=== PATIENT | female | born 1945 | race Caucasian/White ===

== ENCOUNTER 2018-06-13 18:54 | Inpatient (IN) | payer MEDICARE, MEDICAID ==
[2018-06-13 21:29] LABS: BASO # 0.1 K/uL (0.0-0.2); BASO % 0.9 % (0.0-2.0); EOS # 0.3 K/uL (0.0-0.7); EOS % 3.6 % (0.0-4.0); HEMOGLOBIN 12.1 g/dL (11.0-16.0); LYMPH # 2.3 K/uL (1.0-4.3); LYMPH % 24.2 % (20.0-40.0); MEAN CELL VOLUME 92.3 fL (81.0-99.0); MEAN CORPUSCULAR HEMOGLOBIN 31.4 pg (27.0-31.0); MEAN PLATELET VOLUME 9.8 fL (7.2-11.7); MONO % 10.3 % (0.0-10.0); NEUT # 5.8 K/uL (1.8-7.0); NRBC % 0.1 % (0.0-2.0); RBC 3.85 Mil/uL (3.80-5.20); RED CELL DISTRIBUTION WIDTH 14.7 % (11.5-14.5); WHITE BLOOD COUNT 9.6 K/uL (4.8-10.8)
--- NOTE | 2018-06-13 21:52 | C.PDOC ---
History Of Present Illness 73 year old female presents to the emergency department with complaints of swelling and pain to the left leg for the last few days. Patient reports experiencing a similar episode one month prior, for which she was treated with antibiotics. She denies trauma or shortness of breath. Time Seen by Provider: 06/13/18 21:51 Chief Complaint (Nursing): Lower Extremity Problem/Injury History Per: Patient History/Exam Limitations: no limitations Onset/Duration Of Symptoms: Days Current Symptoms Are (Timing): Still Present Severity: Moderate Pain Scale Rating Of: 4 Recent travel outside of the [place]: No Additional History Per: Family Past Medical History Reviewed: Historical Data, Nursing Documentation, Vital Signs Vital Signs: Last Vital Signs Temp 98.6 F 06/13/18 19:01 Pulse 84 06/13/18 21:11 Resp 15 06/13/18 21:11 BP 134/56 L 06/13/18 21:11 Pulse Ox 98 06/13/18 22:07 - Medical History PMH: Anxiety, Asthma, Diabetes, HTN, Hypothyroidism, Chronic Kidney Disease Surgical History: Cholecystectomy Family History: States: No Known Family Hx - Social History Hx Tobacco Use: No Hx Alcohol Use: No Hx Substance Use: No - Immunization History Hx Tetanus Toxoid Vaccination: No Hx Influenza Vaccination: Yes Hx Pneumococcal Vaccination: Yes Review Of Systems Constitutional: Negative for: Fever, Chills Cardiovascular: Negative for: Chest Pain Respiratory: Negative for: Shortness of Breath Gastrointestinal: Negative for: Abdominal Pain Genitourinary: Negative for: Dysuria Musculoskeletal: Positive for: Leg Pain (left leg swelling and pain). Negative for: Back Pain Skin: Positive for: Rash Neurological: Negative for: Weakness Psych: Negative for: Anxiety Physical Exam - Physical Exam Appears: Non-toxic, No Acute Distress Skin: Warm, Dry Head: Normacephalic Eye(s): bilateral: Normal Inspection Oral Mucosa: Moist Neck: Trachea Midline, Supple Chest: Symmetrical, No Tenderness Cardiovascular: Rhythm Regular, No Murmur Respiratory: No Rales, No Rhonchi, No Wheezing Gastrointestinal/Abdominal: Soft, No Tenderness, No Guarding, No Rebound, Other (morbidly obese) Back: Normal Inspection Extremity: Tenderness (left leg), Pedal Edema, Calf Tenderness (left leg), Capillary Refill, Swelling (left leg), Other (left leg erythema) Extremity: Left: Painful To Bear Weight, Bilateral: Atraumatic Pulses: Left Dorsalis Pedis: Normal, Right Dorsalis Pedis: Normal Neurological/Psych: Oriented x3 Gait: With Assistance ED Course And Treatment - Laboratory Results Result Diagrams: 06/13/18 21:23 06/13/18 21:23 O2 Sat by Pulse Oximetry: 98 (RA) Pulse Ox Interpretation: Normal Progress Note: Plan: Venous Blood Gas. CMP. CBC. PTT. Prothrombin Time. Lovenox 100mg SC. Blood Culture. Urinalysis Disposition Discussed With Dr.: Skyler Nichols Comment: accepted the pt on his service and took over the care at 10:37 PM Counseled Patient/Family Regarding: Studies Performed, Diagnosis - Disposition Disposition: HOSPITALIZED Disposition Time: 21:52 Condition: FAIR Forms: [facility] (Citizen Of [place]) - POA Present On Arrival: None - Clinical Impression Clinical Impression: Cellulitis, Leg pain, left, Renal insufficiency - Scribe Statement The provider has reviewed the documentation as recorded by the Scribe (Asim Noonan) Provider Attestation: All medical record entries made by the Scribe were at my direction and personally dictated by me. I have reviewed the chart and agree that the record accurately reflects my personal performance of the history, physical exam, medical decision making, and the department course for this patient. I have also personally directed, reviewed, and agree with the discharge instructions and disposition. Decision To Admit - Pt Status Changed To: Hospital Disposition Of: Inpatient - Admit Certification Admit to Inpatient:: After my assessment, the patient will require hospitalization for at least two midnights. This is because of the severity of symptoms shown, intensity of services needed, and/or the medical risk in this patient being treated as an outpatient. - InPatient: Physician Admission Certification: I certify that this patient requires 2 or more midnights of care for the following reason:: After my assessment, the patient will require hospitalization for at least two midnights. This is because of the severity of symptoms shown, intensity of services needed, and/or the medical risk in this patient being treated as an outpatient. - . Bed Request Type: Regular Admitting Physician: Skyler Nichols Patient Diagnosis: Cellulitis, Leg pain, left, Renal insufficiency
[2018-06-13 21:53] LABS: ALB/GLOB RATIO 1.2 (1.0-2.1); ALBUMIN 4.4 g/dL (3.5-5.0)
[2018-06-13] MEDS ORDERED: Enoxaparin 40 mg Syringe SC STA (21:59)
[2018-06-13 22:16] LABS: VENOUS BLOOD GAS BASE EXCESS 4.2 mmol/L (0.0-2.0); VENOUS BLOOD GAS PCO2 50 mmHg (40-60); VENOUS BLOOD GAS PO2 29 mm/Hg (30-55); VENOUS BLOOD PH 7.39 (7.32-7.43)
[2018-06-13] MEDS ORDERED: Enoxaparin 100 mg Syringe ONE (22:17)
[2018-06-13 22:22] LABS: SQUAMOUS EPITHIAL 4 /hpf (0-5); URINE BILIRUBIN NEGATIVE (NEGATIVE); URINE BLOOD NEGATIVE (NEGATIVE); URINE CLARITY Clear (Clear); URINE COLOR Straw (YELLOW); URINE GLUCOSE (UA) NORMAL (Normal); URINE LEUKOCYTE ESTERASE NEG Leu/uL (Negative); URINE PROTEIN NEGATIVE (NEGATIVE); URINE UROBILINOGEN NORMAL mg/dL (0.2-1.0)
[2018-06-13 22:25] LABS: INR 1.1; PROTHROMBIN TIME 12.3 SECONDS (9.7-12.2)
[2018-06-13] MEDS ORDERED: Piperacillin/Tazobact 3.375 gm 100 ML IVPB STA (22:40)
[2018-06-13] MEDS ORDERED: Vancomycin 1 GM 1 GM/250 ML BAG IVPB SCH (22:45)
[2018-06-13] MEDS ORDERED: Piperacillin/Tazobact 3.375 gm 100 ML IVPB ONE (22:59)
[2018-06-13] MEDS ORDERED: Enoxaparin 100 mg Syringe SC SCH (23:45)
--- NOTE | 2018-06-14 00:15 | CP.PCM.HP ---
<Ravinder Sosa - Last Filed: 06/14/18 00:17> History of Present Illness - History of Present Illness History of Present Illness: Pt is a 73yo female with a PMh of HTN, hypothyroidsm, Asthma, DM type 2, Gout, L lower ext phlebitis and recent treatment course of L Leg cellulitis presents to the ED with a one month history of L lower extremity pain. Pt says the pain went away for the two weeks or so but it came back on saturday. she describes the pain as non radiating, extremely tender and worse with movement. She has not taken anything to make it better. Pt says its been getting worse since saturday. she went to her PMD today who told her to come to the ER for treatment. Of note : Pt has had two episodes of phlebitis in the L calf each after giving to her two children. Pt has a very sedentary lifestyle and only ambulates short distances with a walker. ROS pos+ swelling in the calf, redness, bruising in the L calf, feels warm, difficulty walking neg- fevers, chills, sweating, n/v, SOB, pain with inspiration, chest pain, palpitations, change in vision, sick contacts, change in bowel moves or urine [facility] PMD: unknown PMH: HTn, gout, asthma, dm2, hypothyroid, phlebitis, cellulitis Psx: nicole carpal tunnel release, C section, cholecystectomy SocHx: former smoker, former ETOH, denies drug use, lives home, sedentary Family Hx: mom dm2 Allergies: denies Present on Admission - Present on Admission Any Indicators Present on Admission: No Review of Systems - Constitutional Constitutional: As Per HPI - EENT Eyes: As Per HPI Ears: As Per HPI Nose/Mouth/Throat: As Per HPI - Breasts Breasts: As Per HPI - Cardiovascular Cardiovascular: As Per HPI - Respiratory Respiratory: As Per HPI - Gastrointestinal Gastrointestinal: As Per HPI - Genitourinary Genitourinary: As Per HPI - Reproductive: Female Reproductive:Female: As Per HPI - Menstruation Menstruation: As Per HPI - Musculoskeletal Musculoskeletal: As Per HPI - Integumentary Integumentary: As Per HPI - Neurological Neurological: As Per HPI - Psychiatric Psychiatric: As Per HPI - Endocrine Endocrine: As Per HPI - Hematologic/Lymphatic Hematologic: As Per HPI Past Patient History - Infectious Disease Hx of Infectious Diseases: None - Past Medical History & Family History Past Medical History?: Yes - Past Social History Smoking Status: Former Smoker Alcohol: Occasional Home Situation {Lives}: With Family - CARDIAC Hx Hypertension: Yes - PULMONARY Hx Asthma: Yes - NEUROLOGICAL Hx Neurological Disorder: No - HEENT Hx HEENT Problems: No - RENAL Hx Chronic Kidney Disease: Yes - ENDOCRINE/METABOLIC Hx Hypothyroidism: Yes - HEMATOLOGICAL/ONCOLOGICAL Hx Blood Disorders: No - INTEGUMENTARY Hx Dermatological Problems: No - MUSCULOSKELETAL/RHEUMATOLOGICAL Hx Gout: Yes - GASTROINTESTINAL Hx Gastrointestinal Disorders: No - GENITOURINARY/GYNECOLOGICAL Hx Genitourinary Disorders: No - PSYCHIATRIC Hx Anxiety: Yes Hx Substance Use: No - SURGICAL HISTORY Hx Cholecystectomy: Yes - ANESTHESIA Hx Anesthesia: Yes Meds Allergies/Adverse Reactions: Allergies Allergy/AdvReac Type Severity Reaction Status Date / Time No Known Allergies Allergy Unverified 06/13/18 21:15 Physical Exam - Constitutional Appears: Well, Non-toxic, No Acute Distress - Head Exam Head Exam: ATRAUMATIC, NORMAL INSPECTION - Eye Exam Eye Exam: EOMI, Normal appearance - ENT Exam ENT Exam: Mucous Membranes Moist - Neck Exam Neck exam: Positive for: Normal Inspection - Respiratory Exam Respiratory Exam: Clear to Auscultation Bilateral, NORMAL BREATHING PATTERN - Cardiovascular Exam Cardiovascular Exam: RRR, +S1, +S2. absent: Systolic Murmur - GI/Abdominal Exam GI & Abdominal Exam: Soft. absent: Hypoactive Bowel Sounds, Tenderness - Extremities Exam Extremities exam: Positive for: calf tenderness (L calf), pedal pulses present Additional comments: bruising and erythema at medial posterior surface of Left calf. markedly greater diameter than right - Back Exam Back exam: NORMAL INSPECTION - Neurological Exam Neurological exam: Alert, CN II-XII Intact, Oriented x3 - Psychiatric Exam Psychiatric exam: Normal Affect, Normal Mood - Skin Skin Exam: Normal Color, Warm Results - Vital Signs Recent Vital Signs: Last Vital Signs Temp 98.6 F 06/13/18 19:01 Pulse 84 06/13/18 21:11 Resp 15 06/13/18 21:11 BP 134/56 L 06/13/18 21:11 Pulse Ox 98 06/13/18 22:39 - Labs Result Diagrams: 06/13/18 21:23 06/13/18 21:23 Labs: Laboratory Results - last 24 hr 06/13/18 06/13/18 06/13/18 21:23 21:23 22:02 WBC 9.6 RBC 3.85 Hgb 12.1 Hct 35.5 MCV 92.3 D MCH 31.4 H MCHC 34.0 RDW 14.7 H Plt Count 222 MPV 9.8 Neut % (Auto) 61.0 Lymph % (Auto) 24.2 Canadian % (Auto) 10.3 H Eos % (Auto) 3.6 Baso % (Auto) 0.9 Neut # (Auto) 5.8 Lymph # (Auto) 2.3 Canadian # (Auto) 1.0 H Eos # (Auto) 0.3 Baso # (Auto) 0.1 PT 12.3 H INR 1.1 APTT 35 H pO2 VBG pH VBG pCO2 VBG HCO3 VBG Total CO2 VBG O2 Sat (Calc) VBG Base Excess VBG Potassium Glucose Lactate Sodium 141 Potassium 5.4 H Chloride 101 Carbon Dioxide 29 Anion Gap 17 BUN 49 H Creatinine 2.5 H Est GFR ( Amer) 23 Est GFR (Non-Af Amer) 19 Random Glucose 84 Calcium 10.0 Total Bilirubin 0.9 AST 31 ALT 22 Alkaline Phosphatase 54 Total Protein 8.1 Albumin 4.4 Globulin 3.7 Albumin/Globulin Ratio 1.2 Venous Blood Potassium Urine Color Urine Clarity Urine pH Ur Specific Orchard Urine Protein Urine Glucose (UA) Urine Ketones Urine Blood Urine Nitrate Urine Bilirubin Urine Urobilinogen Ur Leukocyte Esterase Urine WBC (Auto) Ur Squamous Epith Cells 06/13/18 06/13/18 22:10 22:12 WBC RBC Hgb Hct MCV MCH MCHC RDW Plt Count MPV Neut % (Auto) Lymph % (Auto) Canadian % (Auto) Eos % (Auto) Baso % (Auto) Neut # (Auto) Lymph # (Auto) Canadian # (Auto) Eos # (Auto) Baso # (Auto) PT INR APTT pO2 29 L VBG pH 7.39 VBG pCO2 50 VBG HCO3 27.0 VBG Total CO2 31.8 H VBG O2 Sat (Calc) 59.7 VBG Base Excess 4.2 H VBG Potassium 4.2 Glucose 72 Lactate 0.9 Sodium 142.0 Potassium Chloride 107.0 Carbon Dioxide Anion Gap BUN Creatinine Est GFR ( Amer) Est GFR (Non-Af Amer) Random Glucose Calcium Total Bilirubin AST ALT Alkaline Phosphatase Total Protein Albumin Globulin Albumin/Globulin Ratio Venous Blood Potassium 4.2 Urine Color Straw Urine Clarity Clear Urine pH 5.0 Ur Specific [place]chard 1.010 Urine Protein Negative Urine Glucose (UA) Normal Urine Ketones Negative Urine Blood Negative Urine Nitrate Negative Urine Bilirubin Negative Urine Urobilinogen Normal Ur Leukocyte Esterase Neg Urine WBC (Auto) < 1 Ur Squamous Epith Cells 4 Assessment & Plan - Assessment and Plan (Free Text) Assessment: Calf pain/swelling -Lovenox 100mg sc -Venous doppler: f/u results -CBC, CMP, COAG f/u -Blood culture: f/u results DM type 2 -Accuchecks -hypoglycemic protocol Asthma: -monitor pulse ox hypothyroidsm -TSH, free t4 HTN -monitor BP <Skyler Nichols P - Last Filed: 06/14/18 07:04> Results - Vital Signs Recent Vital Signs: Last Vital Signs Temp 98.6 F 06/13/18 19:01 Pulse 60 06/14/18 06:51 Resp 13 06/14/18 06:51 BP 118/54 L 06/14/18 06:51 Pulse Ox 96 06/14/18 06:51 - Labs Result Diagrams: 06/13/18 21:23 06/13/18 21:23 Labs: Laboratory Results - last 24 hr 06/13/18 06/13/18 06/13/18 21:23 21:23 22:02 WBC 9.6 RBC 3.85 Hgb 12.1 Hct 35.5 MCV 92.3 D MCH 31.4 H MCHC 34.0 RDW 14.7 H Plt Count 222 MPV 9.8 Neut % (Auto) 61.0 Lymph % (Auto) 24.2 Canadian % (Auto) 10.3 H Eos % (Auto) 3.6 Baso % (Auto) 0.9 Neut # (Auto) 5.8 Lymph # (Auto) 2.3 Canadian # (Auto) 1.0 H Eos # (Auto) 0.3 Baso # (Auto) 0.1 PT 12.3 H INR 1.1 APTT 35 H pO2 VBG pH VBG pCO2 VBG HCO3 VBG Total CO2 VBG O2 Sat (Calc) VBG Base Excess VBG Potassium Glucose Lactate Sodium 141 Potassium 5.4 H Chloride 101 Carbon Dioxide 29 Anion Gap 17 BUN 49 H Creatinine 2.5 H Est GFR ( Amer) 23 Est GFR (Non-Af Amer) 19 Random Glucose 84 Calcium 10.0 Total Bilirubin 0.9 AST 31 ALT 22 Alkaline Phosphatase 54 Total Protein 8.1 Albumin 4.4 Globulin 3.7 Albumin/Globulin Ratio 1.2 Venous Blood Potassium Urine Color Urine Clarity Urine pH Ur Specific [place] Urine Protein Urine Glucose (UA) Urine Ketones Urine Blood Urine Nitrate Urine Bilirubin Urine Urobilinogen Ur Leukocyte Esterase Urine WBC (Auto) Ur Squamous Epith Cells 06/13/18 06/13/18 22:10 22:12 WBC RBC Hgb Hct MCV MCH MCHC RDW Plt Count MPV Neut % (Auto) Lymph % (Auto) Canadian % (Auto) Eos % (Auto) Baso % (Auto) Neut # (Auto) Lymph # (Auto) Canadian # (Auto) Eos # (Auto) Baso # (Auto) PT INR APTT pO2 29 L VBG pH 7.39 VBG pCO2 50 VBG HCO3 27.0 VBG Total CO2 31.8 H VBG O2 Sat (Calc) 59.7 VBG Base Excess 4.2 H VBG Potassium 4.2 Glucose 72 Lactate 0.9 Sodium 142.0 Potassium Chloride 107.0 Carbon Dioxide Anion Gap BUN Creatinine Est GFR ( Amer) Est GFR (Non-Af Amer) Random Glucose Calcium Total Bilirubin AST ALT Alkaline Phosphatase Total Protein Albumin Globulin Albumin/Globulin Ratio Venous Blood Potassium 4.2 Urine Color Straw Urine Clarity Clear Urine pH 5.0 Ur Specific [place] 1.010 Urine Protein Negative Urine Glucose (UA) Normal Urine Ketones Negative Urine Blood Negative Urine Nitrate Negative Urine Bilirubin Negative Urine Urobilinogen Normal Ur Leukocyte Esterase Neg Urine WBC (Auto) < 1 Ur Squamous Epith Cells 4 Attending/Attestation - Attestation I have personally seen and examined this patient.: Yes I have fully participated in the care of the patient.: Yes I have reviewed all pertinent clinical information: Yes Notes (Text): Assessment Left lower leg, calf swelling, tenderness, without fever, white count, dd of cellulitis vs DVT, with recent use of abx for 3 days agugmentin, and h/o similar episode to lesser extent a month ago, and h/o thrombophebitis post 29 yrs back in the same leg. H/o CRI creat 2.4 NIDDM H/o gout, neuropathy, glaucoma, gb surgery Plan Venous doppler to r/o dvt Empiric abx rocephin and doxycycline Therapeutic lovenox Home meds to resume See orders for detail
[2018-06-14] MEDS ORDERED: Vancomycin 1 gm/NS 200 ml 1 GM/200 ML BAG IVPB STA (00:33)
[2018-06-14] MEDS ORDERED: Brimonidine 0.2% Opth Sol (5ml) OU SCH (08:00)
[2018-06-14] MEDS ORDERED: Vancomycin 1 GM in Sodium Chloride 0.9% 200 ML IVPB SCH (10:00)
[2018-06-14] MEDS ORDERED: Enoxaparin 100 mg Syringe SC SCH (10:00)
[2018-06-14] MEDS: Pantoprazole 40 mg EC Tab PO SCH (11:19)
[2018-06-14 11:23] VITALS: RESP 20
[2018-06-14 17:32] LABS: CALCIUM 8.5 mg/dl (8.6-10.4)
--- NOTE | 2018-06-14 19:03 | CP.PCM.PN ---
Subjective - Date & Time of Evaluation Date of Evaluation: 06/14/18 Time of Evaluation: 19:01 - Subjective Subjective: PGY-1 Medicine Progress Note for Dr. Guevara's service Patient seen and examined at bedside. Patient reports pain on palpation on bilateral lower extremities left>right. Patient denies chest pain, sob, palpitations, n/v, constipation, diarrhea, weakness, headaches, dizziness. Objective - Vital Signs/Intake and Output Vital Signs (last 24 hours): Temp Pulse Resp BP Pulse Ox 97.9 F 76 20 122/77 96 06/14/18 16:00 06/14/18 16:00 06/14/18 16:00 06/14/18 16:00 06/14/18 16:00 Intake and Output: 06/14/18 06/15/18 18:59 06:59 Intake Total 480 Balance 480 - Medications Medications: Current Medications Allopurinol (Zyloprim) 300 mg PO ACBL [facility] Last Admin: 06/14/18 11:20 Dose: 300 mg Amlodipine Besylate (Norvasc) 10 mg PO DAILY [facility] Last Admin: 06/14/18 11:20 Dose: 10 mg Apixaban (Eliquis) 10 mg PO BID [facility] Stop: 06/21/18 12:01 Last Admin: 06/14/18 18:30 Dose: 10 mg Brimonidine Tartrate (Alphagan 0.2% Opht) 0 ml OU Q8 [facility] Doxycycline Hyclate (Doryx) 100 mg PO Q12H [facility] PRN Reason: Protocol Last Admin: 06/14/18 18:30 Dose: 100 mg Ceftriaxone Sodium 1 gm/ (Sodium Chloride) 100 mls @ 100 mls/hr IVPB DAILY [facility] PRN Reason: Protocol Last Admin: 06/14/18 11:21 Dose: 100 mls/hr Latanoprost (Xalatan Opht) 0 ml OU HS [facility] Losartan Potassium (Cozaar) 50 mg PO DAILY [facility] Last Admin: 06/14/18 11:20 Dose: 50 mg Pantoprazole Sodium (Protonix Ec Tab) 40 mg PO DAILY [facility] Last Admin: 06/14/18 11:19 Dose: 40 mg Fluticasone/Salmeterol (Advair Diskus 250/50) 1 puff INH RBID [facility] Sitagliptin Phosphate (Januvia) 25 mg PO DAILY [facility] Last Admin: 06/14/18 16:13 Dose: 25 mg - Labs Labs: 06/13/18 21:23 06/14/18 16:30 PT 12.3 SECONDS (9.7-12.2) H 06/13/18 22:02 INR 1.1 06/13/18 22:02 APTT 35 SECONDS (21-34) H 06/13/18 22:02 - Constitutional Appears: Non-toxic, No Acute Distress - Head Exam Head Exam: NORMAL INSPECTION, NORMOCEPHALIC - Eye Exam Eye Exam: EOMI, Normal appearance. absent: Nystagmus, Scleral icterus - Respiratory Exam Respiratory Exam: Clear to Ausculation Bilateral, NORMAL BREATHING PATTERN. absent: Rales, Rhonchi, Wheezes, Respiratory Distress - Cardiovascular Exam Cardiovascular Exam: REGULAR RHYTHM, +S1, +S2. absent: Tachycardia, Murmur - GI/Abdominal Exam GI & Abdominal Exam: Soft, Normal Bowel Sounds. absent: Firm, Guarding, Rigid, Tenderness - Extremities Exam Extremities Exam: Pedal Edema, Tenderness Additional comments: tenderness to palpation on b/l LE - Neurological Exam Neurological Exam: Alert, Awake, Oriented x3 - Psychiatric Exam Psychiatric exam: Normal Affect, Normal Mood - Skin Skin Exam: Intact, Normal Color Assessment and Plan - Assessment and Plan (Free Text) Assessment: Patient is a 73 female w/ PMH HTN, gout, asthma, DM2, hypothyroid, phlebitis, cellulitis, presents to ED with a 1 month history of lower extremity pain; U/S shows DVT in RLE and possibly left leg however left leg very swollen so cannot be determined Plan: DVT b/l LEs 06/14/18: Venous Doppler- 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
[2018-06-14] MEDS: Latanoprost 2.5 ml Opht Soln OU SCH (21:34)
[2018-06-14] MEDS: Brimonidine 0.2% Opth Sol (5ml) OU SCH (21:35)
--- NOTE | 2018-06-14 23:02 | CP.PCM.CON ---
History of Present Illness - History of Present Illness History of Present Illness: 73 yo F w/ pmh of htn, dm, asthma, gout, L ext phlebitis, recent L leg cellulitis, presented to ED with 1 month of L lower ext pain; nephrology being consulted for advanced renal insufficiency; Patient reports associated swelling of L lower leg, none on R; denies fevers/ chills; appetite has been well; no nausea/vomiting or diarrhea; at baseline, ambulates with walker; denies any shortness of breath, chest pain or palpitations; denies any change in urination; urinates about 3 times per night, denies any dysuria; Reports following with hosiery bagger regularly but does not know the name. Review of Systems - Constitutional Constitutional: absent: Anorexia - EENT Eyes: absent: Change in Vision Nose/Mouth/Throat: Dysphagia. absent: Sore Throat - Cardiovascular Cardiovascular: absent: Chest Pain, Palpitations - Respiratory Respiratory: absent: Dyspnea - Gastrointestinal Gastrointestinal: As Per HPI - Genitourinary Genitourinary: As Per HPI - Musculoskeletal Musculoskeletal: As Per HPI Additional comments: denies NSAID use; - Integumentary Additional comments: erythema of L lower leg; - Neurological Neurological: absent: Dizziness, Headaches - Psychiatric Psychiatric: absent: Anxiety, Depression Past Patient History - Infectious Disease Hx of Infectious Diseases: None - Past Medical History & Family History Past Medical History?: Yes Pertinent Family History: mother - DM, htn; - Past Social History Smoking Status: Never Smoked - CARDIAC Hx Hypertension: Yes - PULMONARY Hx Asthma: Yes - NEUROLOGICAL Hx Neurological Disorder: No - HEENT Hx HEENT Problems: No - RENAL Hx Chronic Kidney Disease: Yes - ENDOCRINE/METABOLIC Hx Hypothyroidism: Yes - HEMATOLOGICAL/ONCOLOGICAL Hx Blood Disorders: No - INTEGUMENTARY Hx Dermatological Problems: No - MUSCULOSKELETAL/RHEUMATOLOGICAL Hx Falls: No - GASTROINTESTINAL Hx Gastrointestinal Disorders: No Hx Gall Bladder Disease: Yes - GENITOURINARY/GYNECOLOGICAL Hx Genitourinary Disorders: No - PSYCHIATRIC Hx Substance Use: No - SURGICAL HISTORY Hx Cholecystectomy: Yes Other/Comment: cholecystectomy , pt unrecalled the year th esurgery was done. - ANESTHESIA Hx Anesthesia: Yes Meds Allergies/Adverse Reactions: Allergies Allergy/AdvReac Type Severity Reaction Status Date / Time No Known Allergies Allergy Unverified 06/13/18 21:15 - Medications Medications: Current Medications Allopurinol (Zyloprim) 300 mg PO ACBL [facility] Last Admin: 06/14/18 11:20 Dose: 300 mg Amlodipine Besylate (Norvasc) 10 mg PO DAILY [facility] Last Admin: 06/14/18 11:20 Dose: 10 mg Apixaban (Eliquis) 10 mg PO BID [facility] Stop: 06/21/18 12:01 Last Admin: 06/14/18 18:30 Dose: 10 mg Brimonidine Tartrate (Alphagan 0.2% Opht) 0 ml OU Q8 [facility] Last Admin: 06/14/18 21:35 Dose: 1 drop Doxycycline Hyclate (Doryx) 100 mg PO Q12H [facility] PRN Reason: Protocol Last Admin: 06/14/18 18:30 Dose: 100 mg Ceftriaxone Sodium 1 gm/ (Sodium Chloride) 100 mls @ 100 mls/hr IVPB DAILY [facility] PRN Reason: Protocol Last Admin: 06/14/18 11:21 Dose: 100 mls/hr Latanoprost (Xalatan Opht) 0 ml OU HS [facility] Last Admin: 06/14/18 21:34 Dose: 2.5 ml Losartan Potassium (Cozaar) 50 mg PO DAILY [facility] Last Admin: 06/14/18 11:20 Dose: 50 mg Pantoprazole Sodium (Protonix Ec Tab) 40 mg PO DAILY [facility] Last Admin: 06/14/18 11:19 Dose: 40 mg Fluticasone/Salmeterol (Advair Diskus 250/50) 1 puff INH RBID [facility] Sitagliptin Phosphate (Januvia) 25 mg PO DAILY [facility] Last Admin: 06/14/18 16:13 Dose: 25 mg Physical Exam - Constitutional Appears: Non-toxic, No Acute Distress - Eye Exam Eye Exam: Normal appearance - ENT Exam ENT Exam: Mucous Membranes Moist - Respiratory Exam Respiratory Exam: Clear to Auscultation Bilateral. absent: Respiratory Distress - Cardiovascular Exam Cardiovascular Exam: RRR, +S1, +S2. absent: Gallop - GI/Abdominal Exam GI & Abdominal Exam: Soft. absent: Distended, Tenderness - Exam Exam: absent: Bladder Distension - Extremities Exam Additional comments: L lower leg tense and edematous/eryhematous; mild R lower leg edema; - Back Exam Back exam: absent: CVA tenderness (L), CVA tenderness (R) - Neurological Exam Neurological exam: Alert Additional comments: normal sensation of feet; no resting tremor; - Psychiatric Exam Psychiatric exam: Normal Affect, Normal Mood - Skin Skin Exam: Warm Additional comments: no cyanosis Results - Vital Signs Recent Vital Signs: Last Vital Signs Temp 97.9 F 06/14/18 16:00 Pulse 76 06/14/18 16:00 Resp 20 06/14/18 16:00 BP 122/77 06/14/18 16:00 Pulse Ox 96 06/14/18 16:00 - Labs Result Diagrams: 06/13/18 21:23 06/14/18 16:30 Labs: Laboratory Results - last 24 hr 06/14/18 16:30 Sodium 142 Potassium 4.3 Chloride 103 Carbon Dioxide 27 Anion Gap 16 BUN 45 H Creatinine 2.3 H Est GFR ( Amer) 25 Est GFR (Non-Af Amer) 21 Random Glucose 132 H Calcium 8.5 L Assessment & Plan (1) CKD (chronic kidney disease), stage IV Assessment and Plan: Relatively stable, etiology of CKD not entirely clear; non-proteinuric kidney disease (at least per UA) but may still have underlying diabetic nephropathy; hyperkalemia resolved; -obtaining random urine for protein and creatinine to better assess for proteinuria; -obtaining renal and bladder US (checking for post-void residual volume); -avoid nephrotoxic agents (NSAIDS, phosphate enema); -checking PTH and 25-OH vit D levels; Status: Chronic (2) Hypertensive chronic kidney disease Assessment and Plan: BP controlled, continue current meds including losartan 50 mg daily; Status: Acute (3) Hyperkalemia Assessment and Plan: Resolved; keep on low K diet; Status: Acute (4) Cellulitis Assessment and Plan: On ceftriaxone and doxycycline, no renal dose adjustment needed; Status: Acute (5) Gout Assessment and Plan: Currently asymptomatic; continue allopurinol 300 mg daily; check uric acid level ; Status: Acute - Assessment and Plan (Free Text) Assessment: Thank you for this referral, we will continue to follow.
[2018-06-15] MEDS: Brimonidine 0.2% Opth Sol (5ml) OU SCH ×3 (06:35→21:31)
[2018-06-15 08:35] LABS: BASO # 0.1 K/uL (0.0-0.2); BASO % 0.9 % (0.0-2.0); EOS # 0.3 K/uL (0.0-0.7); EOS % 3.6 % (0.0-4.0); HEMOGLOBIN 10.9 g/dL (11.0-16.0); LYMPH # 2.1 K/uL (1.0-4.3); LYMPH % 27.2 % (20.0-40.0); MEAN CELL VOLUME 92.8 fL (81.0-99.0); MEAN CORPUSCULAR HEMOGLOBIN 31.3 pg (27.0-31.0); MEAN CORPUSCULAR HGB CONC 33.8 g/dL (33.0-37.0); MEAN PLATELET VOLUME 10.2 fL (7.2-11.7); MONO # 0.7 K/uL (0.0-0.8); MONO % 8.9 % (0.0-10.0); NEUT # 4.6 K/uL (1.8-7.0); NEUT % 59.4 % (50.0-75.0); NRBC % 0.1 % (0.0-2.0); RBC 3.48 Mil/uL (3.80-5.20); RED CELL DISTRIBUTION WIDTH 14.6 % (11.5-14.5); WHITE BLOOD COUNT 7.7 K/uL (4.8-10.8)
[2018-06-15] MEDS: Fluticasone-Salmeterol 250-50mcg Diskus INH SCH ×2 (08:52→19:51)
[2018-06-15 08:56] LABS: ALB/GLOB RATIO 1.2 (1.0-2.1); ALBUMIN 3.6 g/dL (3.5-5.0); CALCIUM 9.6 mg/dl (8.6-10.4)
[2018-06-15 10:01] LABS: URIC ACID 4.6 mg/dL (2.2-7.5)
[2018-06-15] MEDS: Pantoprazole 40 mg EC Tab PO SCH (10:50)
--- NOTE | 2018-06-15 13:08 | US ---
Date of service: 06/15/2018 PROCEDURE: Ultrasound of the Kidneys HISTORY: renal insufficiency COMPARISON: None available. TECHNIQUE: Sonogram of the kidneys. FINDINGS: RIGHT KIDNEY: Measures: 9 x 4.4 x 4.8 cm. Normal in size, contour with mild increased echogenicity. There is a cyst in the upper pole of the right kidney measures 2 x 1.9 x 2 centimeter. There is also cyst in the midpole measures 1.3 x 1.2 x 1.1 centimeter. No stone, solid mass lesion or hydronephrosis visualized. LEFT KIDNEY: Measures: 9 x 3.7 x 4.3 cm. Normal in size, contour with mild increase echogenicity. No stone, solid mass lesion or hydronephrosis visualized. OTHER FINDINGS: None. IMPRESSION: No evidence of hydronephrosis. Mild increased echogenicity suggestive of medical renal disease. Two cysts at the right kidney
--- NOTE | 2018-06-15 13:27 | US ---
Date of service: 06/15/2018 PROCEDURE: Ultrasound of the Bladder HISTORY: check post-void residual volume; COMPARISON: None available. TECHNIQUE: Sonographic evaluation of the bladder was performed. FINDINGS: Unremarkable without wall thickening or intraluminal debris. No calculus or gross mass lesion. No free fluid in pelvis. Bilateral ureteral jets are noted. Prevoid Volume: 72.1 cc. Post void residual: 0 cc. IMPRESSION: Unremarkable sonogram of the bladder.
--- NOTE | 2018-06-15 13:49 | CP.PCM.PN ---
Subjective - Date & Time of Evaluation Date of Evaluation: 06/15/18 Time of Evaluation: 13:46 - Subjective Subjective: PGY-1 Medicine Progress Note for Dr. Guevara's service Patient seen and examined at bedside. Patient reports 8/10 pain in left lower extremity with tenderness to palpation rated 8/10 in pain. Patient denies chest pain, sob, n/v, constipation or diarrhea, dysuria, fevers and chills. Objective - Vital Signs/Intake and Output Vital Signs (last 24 hours): Temp Pulse Resp BP Pulse Ox 97.9 F 76 20 148/75 96 06/15/18 07:27 06/15/18 07:27 06/15/18 07:27 06/15/18 07:27 06/15/18 07:27 Intake and Output: 06/15/18 06/15/18 06:59 18:59 Intake Total 500 Balance 500 - Medications Medications: Current Medications Allopurinol (Zyloprim) 300 mg PO ACBL [facility] Last Admin: 06/15/18 10:50 Dose: 300 mg Amlodipine Besylate (Norvasc) 10 mg PO DAILY [facility] Last Admin: 06/15/18 10:54 Dose: 10 mg Apixaban (Eliquis) 10 mg PO BID [facility] Stop: 06/21/18 12:01 Last Admin: 06/15/18 10:50 Dose: 10 mg Brimonidine Tartrate (Alphagan 0.2% Opht) 0 ml OU Q8 [facility] Last Admin: 06/15/18 13:40 Dose: 1 drop Doxycycline Hyclate (Doryx) 100 mg PO Q12H [facility] PRN Reason: Protocol Last Admin: 06/15/18 06:32 Dose: 100 mg Ceftriaxone Sodium 1 gm/ (Sodium Chloride) 100 mls @ 100 mls/hr IVPB DAILY [facility] PRN Reason: Protocol Last Admin: 06/15/18 10:49 Dose: 100 mls/hr Latanoprost (Xalatan Opht) 0 ml OU HS [facility] Last Admin: 06/14/18 21:34 Dose: 2.5 ml Losartan Potassium (Cozaar) 50 mg PO DAILY [facility] Last Admin: 06/15/18 10:54 Dose: 50 mg Pantoprazole Sodium (Protonix Ec Tab) 40 mg PO DAILY [facility] Last Admin: 06/15/18 10:50 Dose: 40 mg Fluticasone/Salmeterol (Advair Diskus 250/50) 1 puff INH RBID [facility] Last Admin: 06/15/18 08:52 Dose: Not Given Sitagliptin Phosphate (Januvia) 25 mg PO DAILY [facility] Last Admin: 06/15/18 10:50 Dose: 25 mg - Labs Labs: 06/15/18 08:24 06/15/18 08:24 PT 12.3 SECONDS (9.7-12.2) H 06/13/18 22:02 INR 1.1 06/13/18 22:02 APTT 35 SECONDS (21-34) H 06/13/18 22:02 - Constitutional Appears: Non-toxic, No Acute Distress - Head Exam Head Exam: NORMAL INSPECTION, NORMOCEPHALIC - Eye Exam Eye Exam: EOMI, Normal appearance. absent: Nystagmus, Scleral icterus - Respiratory Exam Respiratory Exam: Clear to Ausculation Bilateral, NORMAL BREATHING PATTERN. absent: Rales, Rhonchi, Wheezes - Cardiovascular Exam Cardiovascular Exam: REGULAR RHYTHM, +S1, +S2. absent: Tachycardia, Murmur - GI/Abdominal Exam GI & Abdominal Exam: Soft, Normal Bowel Sounds. absent: Distended, Firm, Guarding, Tenderness - Extremities Exam Extremities Exam: Calf Tenderness, Normal Inspection, Pedal Edema Additional comments: tenderness to palpation warm b/l leg swelling left>right DVTs possible in both legs - Back Exam Back Exam: NORMAL INSPECTION. absent: CVA tenderness (L), CVA tenderness (R) - Neurological Exam Neurological Exam: Alert, Awake, Oriented x3 - Psychiatric Exam Psychiatric exam: Normal Affect, Normal Mood - Skin Skin Exam: Intact, Normal Color Assessment and Plan - Assessment and Plan (Free Text) Assessment: Patient is a 73 female w/ PMH HTN, gout, asthma, DM2, hypothyroid, phlebitis, cellulitis, presents to ED with a 1 month history of lower extremity pain; U/S shows DVT in RLE and possibly left leg however left leg very swollen so cannot be determined Plan: Nephro Consulted: Dr. Fisher- for increased CR DVT b/l LEs 06/14/18: Venous Doppler- Chronic DVT in the right peroneal vein; left distal calf are not well visualized due to swelling Eliquis 10mg po bid Cellulitis afebrile, no white count legs swollen, erthymatous, and pain on palpation bilateral Ceftriaxone 1g daily; Doxycycline 100mg po q12; (no renal dose adjustment as per nephro) DM2 Blood sugar 132; Monitor for now Januvia 25mg po daily Accuchecks Hypoglycemic protocol Asthma Monitor pulse ox Fluticasone/Salmeterol 1 puff INH RBID Hx of HTN 148/75; Continue amlodipine 10mg po daily Continue Losartan 50mg po daily as per nephro Hx of Gout Asymptomatic Allopurinol 300mg po ACBL; Uric acid 114 PPX DVT ppx: on eliquis 10mg po bid GI ppx: Protonix 40mg po daily
--- NOTE | 2018-06-15 15:58 | VASCLAB ---
Date of service: 06/14/2018 PROCEDURE: Lower Extremity Venous Duplex Exam. HISTORY: Left leg swelling PRIORS: None. TECHNIQUE: Bilateral common femoral, femoral, popliteal and posterior tibial, peroneal and great saphenous veins were evaluated. Flow was assessed with color Doppler, compressibility, assessment of phasic flow and augmentation response. Report prepared by CAROLE Young FINDINGS: RIGHT: 1. Common Femoral Vein: 1.1. Compressibility - Fully compressible: Thrombus - None : Flow - Phasic: Augmentation -Normal: Reflux - None. 2. Femoral Vein: 2.1. Compressibility - Fully compressible: Thrombus - None : Flow - Phasic: Augmentation -Normal: Reflux - None. 3. Popliteal Vein: 3.1. Compressibility - Fully compressible: Thrombus - None : Flow - Phasic: Augmentation -Normal: Reflux - Mild. 4. Posterior Tibial Vein: 4.1. Compressibility - Fully compressible: Thrombus - None: Flow - Phasic: Augmentation -Normal: Reflux - None. 5. Peroneal Vein: (one vein partially compressed at mid calf level) 5.1. Compressibility - Partial: Thrombus - Chronic: Flow - Reduced : Augmentation -Normal: Reflux - None. 6. Great Saphenous Vein: 6.1. Compressibility - Fully compressible: Thrombus - None: Flow - Phasic: Augmentation - Normal: Reflux - None. LEFT: 1. Common Femoral Vein: 1.1. Compressibility - Fully compressible: Thrombus - None: Flow - Phasic: Augmentation -Normal: Reflux - None. 2. Femoral Vein: 2.1. Compressibility - Fully compressible: Thrombus - None: Flow - Phasic: Augmentation -Normal: Reflux - None. 3. Popliteal Vein: 3.1. Compressibility - Fully compressible: Thrombus - None : Flow - Phasic: Augmentation -Normal: Reflux - None. 4. Posterior Tibial Vein: (distal view only) 4.1. Compressibility - Fully compressible: Thrombus - None: Flow - Phasic: Augmentation -Normal: Reflux - None. 5. Peroneal Vein: 5.1. Not well visualized. 6. Great Saphenous Vein: 6.1. Compressibility - Fully compressible: Thrombus - None: Flow - Phasic: Augmentation - Normal: Reflux - None. OTHER FINDINGS: IMPRESSION: Right: Partial chronic deep vein thrombosis of one right peroneal vein, with mild reduction of the venous return. Mild valvular incompetence of the right popliteal vein. Left: No evidence of venous thrombosis in the left lower extremity, for those imaged veins. The peroneal and proximal posterior tibial veins are poorly visualized due to swelling.
--- NOTE | 2018-06-15 19:17 | CP.PCM.PN ---
Subjective - Date & Time of Evaluation Date of Evaluation: 06/15/18 Time of Evaluation: 14:30 - Subjective Subjective: Patient reports feeling well; ambulating to bathroom; still with L lower ext pain; Objective - Vital Signs/Intake and Output Vital Signs (last 24 hours): Temp Pulse Resp BP Pulse Ox 98 F 75 20 134/76 95 06/15/18 16:55 06/15/18 16:55 06/15/18 16:55 06/15/18 16:55 06/15/18 16:55 - Medications Medications: Current Medications Allopurinol (Zyloprim) 300 mg PO ACBL [facility] Last Admin: 06/15/18 10:50 Dose: 300 mg Amlodipine Besylate (Norvasc) 10 mg PO DAILY [facility] Last Admin: 06/15/18 10:54 Dose: 10 mg Apixaban (Eliquis) 10 mg PO BID [facility] Stop: 06/21/18 12:01 Last Admin: 06/15/18 18:16 Dose: 10 mg Brimonidine Tartrate (Alphagan 0.2% Opht) 0 ml OU Q8 [facility] Last Admin: 06/15/18 13:40 Dose: 1 drop Doxycycline Hyclate (Doryx) 100 mg PO Q12H [facility] PRN Reason: Protocol Last Admin: 06/15/18 18:16 Dose: 100 mg Ceftriaxone Sodium 1 gm/ (Sodium Chloride) 100 mls @ 100 mls/hr IVPB DAILY [facility] PRN Reason: Protocol Last Admin: 06/15/18 10:49 Dose: 100 mls/hr Latanoprost (Xalatan Opht) 0 ml OU HS [facility] Last Admin: 06/14/18 21:34 Dose: 2.5 ml Losartan Potassium (Cozaar) 50 mg PO DAILY [facility] Last Admin: 06/15/18 10:54 Dose: 50 mg Pantoprazole Sodium (Protonix Ec Tab) 40 mg PO DAILY [facility] Last Admin: 06/15/18 10:50 Dose: 40 mg Fluticasone/Salmeterol (Advair Diskus 250/50) 1 puff INH RBID [facility] Last Admin: 06/15/18 08:52 Dose: Not Given Sitagliptin Phosphate (Januvia) 25 mg PO DAILY [facility] Last Admin: 06/15/18 10:50 Dose: 25 mg - Labs Labs: 06/15/18 08:24 06/15/18 08:24 PT 12.3 SECONDS (9.7-12.2) H 06/13/18 22:02 INR 1.1 06/13/18 22:02 APTT 35 SECONDS (21-34) H 06/13/18 22:02 - Constitutional Appears: Non-toxic, No Acute Distress - Eye Exam Eye Exam: Normal appearance. absent: Scleral icterus - ENT Exam ENT Exam: Mucous Membranes Moist - Respiratory Exam Respiratory Exam: Clear to Ausculation Bilateral. absent: Respiratory Distress - Cardiovascular Exam Cardiovascular Exam: RRR, +S1, +S2 - GI/Abdominal Exam GI & Abdominal Exam: Soft. absent: Distended, Tenderness - Extremities Exam Additional comments: L lower leg with tense edema, tenderness; - Neurological Exam Neurological Exam: Alert, Awake - Psychiatric Exam Psychiatric exam: Normal Affect, Normal Mood. absent: Agitated - Skin Skin Exam: Erythema. absent: Cyanosis Assessment and Plan (1) CKD (chronic kidney disease), stage IV Assessment & Plan: Non-proteinuric kidney disease (although awaiting urine total protein/creatinine ); stable renal function; stable electrolyte and volume status; bladder US was unremarkable although incompletely distended; -avoid nephrotoxic agents (NSAIDS, phosphate enema); -low K diet; Status: Chronic (2) Hypertensive chronic kidney disease Assessment & Plan: BP controlled; continue current meds (losartan and amlodipine); Status: Acute (3) Hyperkalemia Status: Resolved (4) Cellulitis Status: Acute (5) Gout Status: Acute
[2018-06-15] MEDS: Latanoprost 2.5 ml Opht Soln OU SCH (21:31)
--- NOTE | 2018-06-16 06:25 | CP.PCM.PN ---
Subjective - Date & Time of Evaluation Date of Evaluation: 06/16/18 Time of Evaluation: 06:25 - Subjective Subjective: Nephrology Progress Note for Suzanne Villalobos PGY3 Patient seen and examined at bedside. Patient felt briefly short of breath overnight as per nursing staff and resolved with supplemental O2. This AM patient was resting comfortably without oxygen and denies chest pain, shortness of breath, nausea/vomiting/diarrhea, fever/chills, numbness/tingling, dysuria or hematuria. She does complain of pain and redness in her L lower extremity. Objective - Vital Signs/Intake and Output Vital Signs (last 24 hours): Temp Pulse Resp BP Pulse Ox 98.1 F 73 20 133/75 95 06/16/18 00:03 06/16/18 00:03 06/16/18 00:03 06/16/18 00:03 06/16/18 00:03 Intake and Output: 06/15/18 06/16/18 18:59 06:59 Intake Total 500 Balance 500 - Medications Medications: Current Medications Allopurinol (Zyloprim) 300 mg PO ACBL [facility] Last Admin: 06/15/18 10:50 Dose: 300 mg Amlodipine Besylate (Norvasc) 10 mg PO DAILY [facility] Last Admin: 06/15/18 10:54 Dose: 10 mg Apixaban (Eliquis) 10 mg PO BID [facility] Stop: 06/21/18 12:01 Last Admin: 06/15/18 18:16 Dose: 10 mg Brimonidine Tartrate (Alphagan 0.2% Opht) 0 ml OU Q8 [facility] Last Admin: 06/15/18 21:31 Dose: 1 drop Doxycycline Hyclate (Doryx) 100 mg PO Q12H [facility] PRN Reason: Protocol Last Admin: 06/15/18 18:16 Dose: 100 mg Ceftriaxone Sodium 1 gm/ (Sodium Chloride) 100 mls @ 100 mls/hr IVPB DAILY [facility] PRN Reason: Protocol Last Admin: 06/15/18 10:49 Dose: 100 mls/hr Latanoprost (Xalatan Opht) 0 ml OU HS [facility] Last Admin: 06/15/18 21:31 Dose: 2.5 ml Losartan Potassium (Cozaar) 50 mg PO DAILY [facility] Last Admin: 06/15/18 10:54 Dose: 50 mg Pantoprazole Sodium (Protonix Ec Tab) 40 mg PO DAILY [facility] Last Admin: 06/15/18 10:50 Dose: 40 mg Fluticasone/Salmeterol (Advair Diskus 250/50) 1 puff INH RBID [facility] Last Admin: 06/15/18 19:51 Dose: Not Given Sitagliptin Phosphate (Januvia) 25 mg PO DAILY [facility] Last Admin: 06/15/18 10:50 Dose: 25 mg - Labs Labs: 06/15/18 08:24 06/15/18 08:24 PT 12.3 SECONDS (9.7-12.2) H 06/13/18 22:02 INR 1.1 06/13/18 22:02 APTT 35 SECONDS (21-34) H 06/13/18 22:02 - Constitutional Appears: No Acute Distress - Head Exam Head Exam: ATRAUMATIC, NORMAL INSPECTION, NORMOCEPHALIC - Eye Exam Eye Exam: Normal appearance, PERRL Pupil Exam: NORMAL ACCOMODATION - ENT Exam ENT Exam: Mucous Membranes Moist - Neck Exam Neck Exam: Full ROM - Respiratory Exam Respiratory Exam: Clear to Ausculation Bilateral, NORMAL BREATHING PATTERN. absent: Rales, Rhonchi, Wheezes - Cardiovascular Exam Cardiovascular Exam: REGULAR RHYTHM, +S1, +S2. absent: Gallop, Rubs, Murmur - GI/Abdominal Exam GI & Abdominal Exam: Soft, Normal Bowel Sounds. absent: Rigid, Tenderness, Mass , Rebound - Extremities Exam Extremities Exam: Tenderness (LLE) Additional comments: erythema of LLE - Neurological Exam Neurological Exam: Alert, Awake, CN II-XII Intact - Psychiatric Exam Psychiatric exam: Normal Affect, Normal Mood - Skin Skin Exam: Dry, Warm Assessment and Plan - Assessment and Plan (Free Text) Assessment: This is a 73yo female with past medical history of HTN, gout, asthma, NIDDM, CKD IV who was admitted for 1. CKD IV- chronic - Cr stable - Labs and imaging reviewed - patient euvolemic - Urine protein/Cr ratio pending - Low K diet - Avoid nephrotoxic agents (including NSAIDs and phosphate enemas) 2. HTN - controlled - Continue Norvasc and Cozaar 3. Cellulitis of LLE - acute - On Doxycycline and Rocephin 4. Gout - controlled - on allopurinol Case seen, discussed and reviewed with Dr. Fisher. Suzanne Mi PGY3
[2018-06-16] MEDS: Brimonidine 0.2% Opth Sol (5ml) OU SCH ×3 (06:35→22:23)
--- NOTE | 2018-06-16 07:18 | CP.PCM.PN ---
Subjective - Date & Time of Evaluation Date of Evaluation: 06/16/18 Time of Evaluation: 13:21 - Subjective Subjective: PGY-1 Medicine Progress Note for Dr. Guevara's service Patient seen and examined at bedside. Patient reports continued left lower extremity greater than right rated at a 8/10, with hypersensitivity to palpation. Patient denies chest pain, sob, n/v, constipation or diarrhea, dysuria, headaches, dizziness. Objective - Vital Signs/Intake and Output Vital Signs (last 24 hours): Temp Pulse Resp BP Pulse Ox 98.1 F 73 20 133/75 95 06/16/18 00:03 06/16/18 00:03 06/16/18 00:03 06/16/18 00:03 06/16/18 00:03 Intake and Output: 06/16/18 06/16/18 06:59 18:59 Intake Total 500 Balance 500 - Medications Medications: Current Medications Allopurinol (Zyloprim) 300 mg PO ACBL [facility] Last Admin: 06/16/18 06:34 Dose: 300 mg Amlodipine Besylate (Norvasc) 10 mg PO DAILY [facility] Last Admin: 06/15/18 10:54 Dose: 10 mg Apixaban (Eliquis) 10 mg PO BID [facility] Stop: 06/21/18 12:01 Last Admin: 06/15/18 18:16 Dose: 10 mg Brimonidine Tartrate (Alphagan 0.2% Opht) 0 ml OU Q8 [facility] Last Admin: 06/16/18 06:35 Dose: 1 drop Doxycycline Hyclate (Doryx) 100 mg PO Q12H [facility] PRN Reason: Protocol Last Admin: 06/16/18 06:34 Dose: 100 mg Ceftriaxone Sodium 1 gm/ (Sodium Chloride) 100 mls @ 100 mls/hr IVPB DAILY [facility] PRN Reason: Protocol Last Admin: 06/15/18 10:49 Dose: 100 mls/hr Latanoprost (Xalatan Opht) 0 ml OU HS [facility] Last Admin: 06/15/18 21:31 Dose: 2.5 ml Losartan Potassium (Cozaar) 50 mg PO DAILY [facility] Last Admin: 06/15/18 10:54 Dose: 50 mg Pantoprazole Sodium (Protonix Ec Tab) 40 mg PO DAILY [facility] Last Admin: 06/15/18 10:50 Dose: 40 mg Fluticasone/Salmeterol (Advair Diskus 250/50) 1 puff INH RBID [facility] Last Admin: 06/15/18 19:51 Dose: Not Given Sitagliptin Phosphate (Januvia) 25 mg PO DAILY [facility] Last Admin: 06/15/18 10:50 Dose: 25 mg - Labs Labs: 06/15/18 08:24 06/15/18 08:24 PT 12.3 SECONDS (9.7-12.2) H 06/13/18 22:02 INR 1.1 06/13/18 22:02 APTT 35 SECONDS (21-34) H 06/13/18 22:02 - Constitutional Appears: Non-toxic, No Acute Distress - Head Exam Head Exam: NORMAL INSPECTION, NORMOCEPHALIC - Eye Exam Eye Exam: EOMI, Normal appearance. absent: Nystagmus, Scleral icterus - Respiratory Exam Respiratory Exam: Clear to Ausculation Bilateral, NORMAL BREATHING PATTERN. absent: Prolonged Expiratory Phase, Rales, Rhonchi, Wheezes - Cardiovascular Exam Cardiovascular Exam: REGULAR RHYTHM, +S1, +S2 - GI/Abdominal Exam GI & Abdominal Exam: Soft, Normal Bowel Sounds. absent: Distended, Firm, Guarding, Tenderness - Extremities Exam Extremities Exam: Calf Tenderness, Tenderness Additional comments: left extremity tenderness below the knee non localized warm to touch - Neurological Exam Neurological Exam: Alert, Awake, Oriented x3 - Psychiatric Exam Psychiatric exam: Normal Affect, Normal Mood - Skin Skin Exam: Intact, Normal Color Assessment and Plan - Assessment and Plan (Free Text) Assessment: Patient is a 73 female w/ PMH HTN, gout, asthma, DM2, hypothyroid, phlebitis, cellulitis, presents to ED with a 1 month history of lower extremity pain; U/S shows DVT in RLE and possibly left leg however left leg very swollen so cannot be determined Plan: Nephro Consulted: Dr. Fisher- for increased CR DVT b/l LEs 06/14/18 Venous Doppler- Chronic DVT in the right peroneal vein; left distal calf are not well visualized due to swelling 06/16/18 Venous Doppler repeat: Prior study for left lower extremity limited due to swelling Eliquis 10mg po bid PT/OT consulted for recommendations for discharge to home or [facility] Cellulitis afebrile, no white count legs swollen, erthymatous, and pain on palpation bilateral Ceftriaxone 1g daily; Doxycycline 100mg po q12; (no renal dose adjustment as per nephro) Avoid nephrotoxic agents (no nsaids) DM2 Blood sugar 132; Monitor for now Januvia 25mg po daily Accuchecks Hypoglycemic protocol Asthma Monitor pulse ox Fluticasone/Salmeterol 1 puff INH RBID Hx of HTN 110/66; Controlled Continue amlodipine 10mg po daily Continue Losartan 50mg po daily as per nephro Hx of Gout Asymptomatic Allopurinol 300mg po ACBL; Uric acid 114 PPX DVT ppx: on eliquis 10mg po bid GI ppx: Protonix 40mg po daily
[2018-06-16 08:32] LABS: BASO # 0.1 K/uL (0.0-0.2); BASO % 0.6 % (0.0-2.0); EOS # 0.3 K/uL (0.0-0.7); EOS % 3.2 % (0.0-4.0); HEMOGLOBIN 11.6 g/dL (11.0-16.0); LYMPH # 2.4 K/uL (1.0-4.3); LYMPH % 29.8 % (20.0-40.0); MEAN CELL VOLUME 93.7 fL (81.0-99.0); MEAN CORPUSCULAR HGB CONC 33.1 g/dL (33.0-37.0); MONO # 0.6 K/uL (0.0-0.8); MONO % 7.1 % (0.0-10.0); NEUT # 4.7 K/uL (1.8-7.0); NEUT % 59.3 % (50.0-75.0); NRBC % 0.1 % (0.0-2.0); RBC 3.74 Mil/uL (3.80-5.20); RED CELL DISTRIBUTION WIDTH 14.3 % (11.5-14.5)
[2018-06-16 08:45] LABS: ALB/GLOB RATIO 1.3 (1.0-2.1); ALBUMIN 4.1 g/dL (3.5-5.0)
[2018-06-16] MEDS: Pantoprazole 40 mg EC Tab PO SCH (09:19)
[2018-06-16] MEDS ORDERED: Magnesium Sulfate 1 gm in D5W 1 GM/100 ML BAG IVPB ONE ×2 (09:52→10:39)
--- NOTE | 2018-06-16 15:21 | CP.PCM.PN ---
Subjective - Date & Time of Evaluation Date of Evaluation: 06/16/18 Time of Evaluation: 15:18 - Subjective Subjective: Nephrology Consultation Note Assessment: Stable DVT, cellulitis hx of Gout Diabetic chronic Kidney Disease (E11.22) Hypertensive Chronic Kidney Disease (I12.9) Chronic Kidney Disease (N18.4) Stage 4 without proteinuria (R80.9) likely due to HTN nephrosclerosis Anemia (D64.9), HTN (I12.9) Plan No acute need for renal replacement therapy at this time. Hypertension control with meds as ordered. Maintain hemodynamics stable. Avoid hypotension. Patient on RAAS ludmila, continue same Monitor Input/Output, daily weights and renal function with basic metabolic panel allopurinol dose lowered due to her ckd 4 vit D level adequate Dose meds/antibiotics for reduced GFR. Avoid fleets enema/magnesium based laxatives. Avoid nephrotoxins/NSAIDs/ iodinated contrast (unless needed emergently) Glycemic control Further work up for as per primary team Thanks for allowing me to participate in care of your patient. Will follow patient with you. Please call if any Qs Dr Davey Guevara Office: [phone] Subjective: Noted events overnight. Patients feels okay. Denies chest pain, palpitation, shortness of breath, improved leg swelling. 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 Vitals reviewed and noted as below Head; Atraumatic, normocephalic ENT: no ulcers no thrush. Tongue is midline. Oropharynx: no rash or ulcers. EYES: Pupils are equal, round and reactive to light accommodation. Eye muscles and extraocular movement intact. Sclera is anicteric. Neck; supple no lymphadenopathy, no thyromegaly or bruit Lungs: Normal respiratory rate/effort. Breath sounds bilateral equal and clear Heart: Normal rate. s1s2 normal. No rub or gallop. Extremities: no edema. No varicose veins. leg tender as per pt Neurological: Patient is alert, awake and oriented to person, place and time. No focal deficit. Strength bilateral appropriate and equal Skin: Warm and dry. Normal turgor. No rash. Palpitation: Normal elasticity for age Abdomen: Abdomen is soft. Bowel sounds +. There is no abdominal tenderness, no guarding/rigidity no organomegaly Psych: limited insight and normal affect/mood MSK: no joint tenderness or swelling. Digits and nails normal, no deformity : kidney or bladder not palpable Labs/imaging reviewed. Past medical history, past surgical history, family history, social history, allergy reviewed and noted as below Family hx: no hx of CKD. Rest non-contributory Objective - Vital Signs/Intake and Output Vital Signs (last 24 hours): Temp Pulse Resp BP Pulse Ox 97.9 F 70 20 150/73 96 06/16/18 07:00 06/16/18 07:00 06/16/18 07:00 06/16/18 07:00 06/16/18 07:00 Intake and Output: 06/16/18 06/16/18 06:59 18:59 Intake Total 500 Balance 500 - Medications Medications: Current Medications Allopurinol (Zyloprim) 100 mg PO DAILY [facility] Amlodipine Besylate (Norvasc) 10 mg PO DAILY [facility] Last Admin: 06/16/18 09:19 Dose: 10 mg Apixaban (Eliquis) 10 mg PO BID [facility] Stop: 06/21/18 12:01 Last Admin: 06/16/18 09:24 Dose: 10 mg Brimonidine Tartrate (Alphagan 0.2% Opht) 0 ml OU Q8 [facility] Last Admin: 06/16/18 13:41 Dose: 1 drop Doxycycline Hyclate (Doryx) 100 mg PO Q12H [facility] PRN Reason: Protocol Last Admin: 06/16/18 06:34 Dose: 100 mg Ceftriaxone Sodium 1 gm/ (Sodium Chloride) 100 mls @ 100 mls/hr IVPB DAILY [facility] PRN Reason: Protocol Last Admin: 06/16/18 12:04 Dose: 100 mls/hr Latanoprost (Xalatan Opht) 0 ml OU HS [facility] Last Admin: 06/15/18 21:31 Dose: 2.5 ml Losartan Potassium (Cozaar) 50 mg PO DAILY [facility] Last Admin: 06/16/18 09:19 Dose: 50 mg Pantoprazole Sodium (Protonix Ec Tab) 40 mg PO DAILY [facility] Last Admin: 06/16/18 09:19 Dose: 40 mg Fluticasone/Salmeterol (Advair Diskus 250/50) 1 puff INH RBID [facility] Last Admin: 06/15/18 19:51 Dose: Not Given Sitagliptin Phosphate (Januvia) 25 mg PO DAILY [facility] Last Admin: 06/16/18 09:19 Dose: 25 mg - Labs Labs: 06/16/18 08:18 06/16/18 08:18 PT 12.3 SECONDS (9.7-12.2) H 06/13/18 22:02 INR 1.1 06/13/18 22:02 APTT 35 SECONDS (21-34) H 06/13/18 22:02
[2018-06-16] MEDS: Fluticasone-Salmeterol 250-50mcg Diskus INH SCH (19:27)
[2018-06-16] MEDS ORDERED: Aluminum Hydroxide/Magnesium Hydroxide Susp (30 mL) PO ONE (19:30)
[2018-06-16] MEDS: Latanoprost 2.5 ml Opht Soln OU SCH (22:18)
[2018-06-17] MEDS: Brimonidine 0.2% Opth Sol (5ml) OU SCH ×2 (06:48→14:15)
--- NOTE | 2018-06-17 07:12 | CP.PCM.PN ---
Objective - Vital Signs/Intake and Output Vital Signs (last 24 hours): Temp Pulse Resp BP Pulse Ox 98.6 F 77 20 152/78 H 98 06/17/18 00:00 06/17/18 00:00 06/17/18 00:00 06/17/18 00:00 06/17/18 00:00 Intake and Output: 06/17/18 06/17/18 06:59 18:59 Intake Total 300 Balance 300 - Medications Medications: Current Medications Allopurinol (Zyloprim) 100 mg PO DAILY [facility] Amlodipine Besylate (Norvasc) 10 mg PO DAILY [facility] Last Admin: 06/16/18 09:19 Dose: 10 mg Apixaban (Eliquis) 10 mg PO BID [facility] Stop: 06/21/18 12:01 Last Admin: 06/16/18 18:43 Dose: 10 mg Brimonidine Tartrate (Alphagan 0.2% Opht) 0 ml OU Q8 [facility] Last Admin: 06/17/18 06:48 Dose: 1 drop Doxycycline Hyclate (Doryx) 100 mg PO Q12H [facility] PRN Reason: Protocol Last Admin: 06/17/18 06:46 Dose: 100 mg Ceftriaxone Sodium 1 gm/ (Sodium Chloride) 100 mls @ 100 mls/hr IVPB DAILY [facility] PRN Reason: Protocol Last Admin: 06/16/18 12:04 Dose: 100 mls/hr Latanoprost (Xalatan Opht) 0 ml OU HS [facility] Last Admin: 06/16/18 22:18 Dose: 2.5 ml Losartan Potassium (Cozaar) 50 mg PO DAILY [facility] Last Admin: 06/16/18 09:19 Dose: 50 mg Pantoprazole Sodium (Protonix Ec Tab) 40 mg PO DAILY [facility] Last Admin: 06/16/18 09:19 Dose: 40 mg Fluticasone/Salmeterol (Advair Diskus 250/50) 1 puff INH RBID [facility] Last Admin: 06/16/18 19:27 Dose: Not Given Sitagliptin Phosphate (Januvia) 25 mg PO DAILY [facility] Last Admin: 06/16/18 09:19 Dose: 25 mg - Labs Labs: 06/16/18 08:18 06/16/18 08:18 PT 12.3 SECONDS (9.7-12.2) H 06/13/18 22:02 INR 1.1 06/13/18 22:02 APTT 35 SECONDS (21-34) H 06/13/18 22:02 Assessment and Plan - Assessment and Plan (Free Text) Plan: Nephro Consulted: Dr. Fisher- for increased CR DVT b/l LEs 06/14/18 Venous Doppler- Chronic DVT in the right peroneal vein; left distal calf are not well visualized due to swelling 06/16/18 Venous Doppler repeat: Prior study for left lower extremity limited due to swelling Eliquis 10mg po bid PT/OT consulted for recommendations for discharge to home or [facility] Cellulitis afebrile, no white count legs swollen, erthymatous, and pain on palpation bilateral Ceftriaxone 1g daily; Doxycycline 100mg po q12; (no renal dose adjustment as per nephro); Blood cultures are negative Avoid nephrotoxic agents (no nsaids) DM2 Blood sugar 132; Monitor for now Januvia 25mg po daily Accuchecks Hypoglycemic protocol Asthma Monitor pulse ox Fluticasone/Salmeterol 1 puff INH RBID Hx of HTN 152/78; Repeat after meds; Continue amlodipine 10mg po daily Continue Losartan 50mg po daily as per nephro Hx of Gout Asymptomatic Allopurinol 300mg po ACBL PPX DVT ppx: on eliquis 10mg po bid GI ppx: Protonix 40mg po daily
[2018-06-17 08:24] VITALS: TEMP 98.1; O2SAT 96
[2018-06-17] MEDS: Pantoprazole 40 mg EC Tab PO SCH (10:35)
[2018-06-17 10:39] VITALS: BP 161/74; PULSE 79
--- NOTE | 2018-06-17 11:05 | CP.PCM.PN ---
Subjective - Date & Time of Evaluation Date of Evaluation: 06/17/18 Time of Evaluation: 11:03 - Subjective Subjective: Nephrology Consultation Note Assessment: Stable DVT, cellulitis hx of Gout Diabetic chronic Kidney Disease (E11.22) Hypertensive Chronic Kidney Disease (I12.9) Chronic Kidney Disease (N18.4) Stage 4 with 300 proteinuria (R80.9) and 103 mg albuminuria likely due to HTN nephrosclerosis Anemia (D64.9), HTN (I12.9) Plan No acute need for renal replacement therapy at this time. Hypertension control with meds as ordered. Maintain hemodynamics stable. Avoid hypotension. Patient on RAAS ludmila, continue same. addec chlorthalidone Monitor Input/Output, daily weights and renal function with basic metabolic panel allopurinol dose lowered to 100 mg/day due to her ckd 4 vit D level adequate. PTH level 70 acceptable Dose meds/antibiotics for reduced GFR. Avoid fleets enema/magnesium based laxatives. Avoid nephrotoxins/NSAIDs/ iodinated contrast (unless needed emergently) Glycemic control Further work up for as per primary team Thanks for allowing me to participate in care of your patient. Will follow patient with you. Please call if any Qs Dr Davey Guevara Office: [phone] Subjective: Noted events overnight. Patients feels okay. Denies chest pain, palpitation, shortness of breath, improved leg swelling. 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 Vitals reviewed and noted as below Head; Atraumatic, normocephalic ENT: no ulcers no thrush. Tongue is midline. Oropharynx: no rash or ulcers. EYES: Pupils are equal, round and reactive to light accommodation. Eye muscles and extraocular movement intact. Sclera is anicteric. Neck; supple no lymphadenopathy, no thyromegaly or bruit Lungs: Normal respiratory rate/effort. Breath sounds bilateral equal and clear Heart: Normal rate. s1s2 normal. No rub or gallop. Extremities: trace to 1+ edema. No varicose veins. leg tender as per pt Neurological: Patient is alert, awake and oriented to person, place and time. No focal deficit. Strength bilateral appropriate and equal Skin: Warm and dry. Normal turgor. No rash. Palpitation: Normal elasticity for age Abdomen: Abdomen is soft. Bowel sounds +. There is no abdominal tenderness, no guarding/rigidity no organomegaly Psych: limited insight and normal affect/mood MSK: no joint tenderness or swelling. Digits and nails normal, no deformity : kidney or bladder not palpable Labs/imaging reviewed. Past medical history, past surgical history, family history, social history, allergy reviewed and noted as below Family hx: no hx of CKD. Rest non-contributory Objective - Vital Signs/Intake and Output Vital Signs (last 24 hours): Temp Pulse Resp BP Pulse Ox 98.1 F 79 20 161/74 H 96 06/17/18 07:00 06/17/18 10:38 06/17/18 07:00 06/17/18 10:38 06/17/18 07:00 Intake and Output: 06/17/18 06/17/18 06:59 18:59 Intake Total 300 Balance 300 - Medications Medications: Current Medications Allopurinol (Zyloprim) 100 mg PO DAILY [facility] Amlodipine Besylate (Norvasc) 10 mg PO DAILY [facility] Last Admin: 06/17/18 10:35 Dose: 10 mg Apixaban (Eliquis) 10 mg PO BID [facility] Stop: 06/21/18 12:01 Last Admin: 06/17/18 10:35 Dose: 10 mg Brimonidine Tartrate (Alphagan 0.2% Opht) 0 ml OU Q8 [facility] Last Admin: 06/17/18 06:48 Dose: 1 drop Doxycycline Hyclate (Doryx) 100 mg PO Q12H [facility] PRN Reason: Protocol Last Admin: 06/17/18 06:46 Dose: 100 mg Ceftriaxone Sodium 1 gm/ (Sodium Chloride) 100 mls @ 100 mls/hr IVPB DAILY [facility] PRN Reason: Protocol Last Admin: 06/17/18 10:36 Dose: 100 mls/hr Latanoprost (Xalatan Opht) 0 ml OU HS [facility] Last Admin: 06/16/18 22:18 Dose: 2.5 ml Losartan Potassium (Cozaar) 50 mg PO DAILY [facility] Last Admin: 06/17/18 10:35 Dose: 50 mg Pantoprazole Sodium (Protonix Ec Tab) 40 mg PO DAILY [facility] Last Admin: 06/17/18 10:35 Dose: 40 mg Fluticasone/Salmeterol (Advair Diskus 250/50) 1 puff INH RBID [facility] Last Admin: 06/16/18 19:27 Dose: Not Given Sitagliptin Phosphate (Januvia) 25 mg PO DAILY [facility] Last Admin: 06/17/18 10:36 Dose: 25 mg - Labs Labs: 06/16/18 08:18 06/16/18 08:18 PT 12.3 SECONDS (9.7-12.2) H 06/13/18 22:02 INR 1.1 06/13/18 22:02 APTT 35 SECONDS (21-34) H 06/13/18 22:02
[2018-06-17 11:11] LABS: BASO # 0.1 K/uL (0.0-0.2); BASO % 1.1 % (0.0-2.0); EOS # 0.2 K/uL (0.0-0.7); EOS % 2.5 % (0.0-4.0); LYMPH % 27.7 % (20.0-40.0); MEAN CELL VOLUME 93.4 fL (81.0-99.0); MEAN CORPUSCULAR HEMOGLOBIN 31.2 pg (27.0-31.0); MEAN CORPUSCULAR HGB CONC 33.4 g/dL (33.0-37.0); MEAN PLATELET VOLUME 9.9 fL (7.2-11.7); MONO # 0.5 K/uL (0.0-0.8); MONO % 6.5 % (0.0-10.0); NEUT # 4.5 K/uL (1.8-7.0); NEUT % 62.2 % (50.0-75.0); NRBC % 0.1 % (0.0-2.0); RBC 3.54 Mil/uL (3.80-5.20); RED CELL DISTRIBUTION WIDTH 14.9 % (11.5-14.5); WHITE BLOOD COUNT 7.3 K/uL (4.8-10.8)
[2018-06-17 11:30] LABS: ALB/GLOB RATIO 1.2 (1.0-2.1); ALBUMIN 3.8 g/dL (3.5-5.0); CALCIUM 9.7 mg/dl (8.6-10.4)
[2018-06-17] MEDS ORDERED: Tramadol 25 mg PO PRN (11:41)
--- NOTE | 2018-06-17 13:14 | VASCLAB ---
Date of service: 06/16/2018 PROCEDURE: Left Lower Extremity Venous Duplex Exam. HISTORY: Left leg pain PRIORS: Last exam 06/14/2018, abnormal. TECHNIQUE: Left common femoral, femoral, popliteal and posterior tibial, peroneal and great saphenous veins were evaluated. Flow was assessed with color Doppler, compressibility, assessment of phasic flow and augmentation response. Report prepared by CAROLE Young FINDINGS: LEFT: 1. Common Femoral Vein: 1.1. Compressibility - Fully compressible: Thrombus - None : Flow - Phasic: Augmentation -Normal: Reflux - None. 2. Femoral Vein: 2.1. Compressibility - Fully compressible: Thrombus - None: Flow - Phasic: Augmentation -Normal: Reflux - None. 3. Popliteal Vein: 3.1. Compressibility - Fully compressible: Thrombus - None: Flow - Phasic: Augmentation -Normal: Reflux - None. 4. Posterior Tibial Vein: 4.1. Compressibility - Fully compressible: Thrombus - None: Flow - Phasic: Augmentation -Normal: Reflux - None. 5. Peroneal Vein: 5.1. Not visualized due to edema. 6. Great Saphenous Vein: 6.1. Compressibility - Fully compressible: Thrombus - None: Flow - Phasic: Augmentation - Normal: Reflux - None. OTHER FINDINGS: IMPRESSION: No evidence of deep or superficial vein thrombosis of the left lower extremity, for the imaged veins. Normal venous flow noted in the right common femoral vein.
--- NOTE | 2018-06-17 16:10 | CP.PCM.DIS ---
Provider - Provider Date of Admission: 06/13/18 22:36 Attending physician: Skyler Nichols MD Time Spent in preparation of Discharge (in minutes): 45 Hospital Course - Lab Results Lab Results: Micro Results 06/14/18 20:36 Blood Blood Culture - Preliminary NO GROWTH AFTER 48 HOURS 06/14/18 16:30 Blood Blood Culture - Preliminary NO GROWTH AFTER 48 HOURS Most Recent Lab Values WBC 7.3 K/uL (4.8-10.8) 06/17/18 11:03 RBC 3.54 Mil/uL (3.80-5.20) L 06/17/18 11:03 Hgb 11.0 g/dL (11.0-16.0) 06/17/18 11:03 Hct 33.0 % (34.0-47.0) L 06/17/18 11:03 MCV 93.4 fL (81.0-99.0) 06/17/18 11:03 MCH 31.2 pg (27.0-31.0) H 06/17/18 11:03 MCHC 33.4 g/dL (33.0-37.0) 06/17/18 11:03 RDW 14.9 % (11.5-14.5) H 06/17/18 11:03 Plt Count 213 K/uL (130-400) 06/17/18 11:03 MPV 9.9 fL (7.2-11.7) 06/17/18 11:03 Neut % (Auto) 62.2 % (50.0-75.0) 06/17/18 11:03 Lymph % (Auto) 27.7 % (20.0-40.0) 06/17/18 11:03 Robertson % (Auto) 6.5 % (0.0-10.0) 06/17/18 11:03 Eos % (Auto) 2.5 % (0.0-4.0) 06/17/18 11:03 Baso % (Auto) 1.1 % (0.0-2.0) 06/17/18 11:03 Neut # (Auto) 4.5 K/uL (1.8-7.0) 06/17/18 11:03 Lymph # (Auto) 2.0 K/uL (1.0-4.3) 06/17/18 11:03 Robertson # (Auto) 0.5 K/uL (0.0-0.8) 06/17/18 11:03 Eos # (Auto) 0.2 K/uL (0.0-0.7) 06/17/18 11:03 Baso # (Auto) 0.1 K/uL (0.0-0.2) 06/17/18 11:03 PT 12.3 SECONDS (9.7-12.2) H 06/13/18 22:02 INR 1.1 06/13/18 22:02 APTT 35 SECONDS (21-34) H 06/13/18 22:02 pO2 29 mm/Hg (30-55) L 06/13/18 22:10 VBG pH 7.39 (7.32-7.43) 06/13/18 22:10 VBG pCO2 50 mmHg (40-60) 06/13/18 22:10 VBG HCO3 27.0 mmol/L 06/13/18 22:10 VBG Total CO2 31.8 mmol/L (22-28) H 06/13/18 22:10 VBG O2 Sat (Calc) 59.7 % (40-65) 06/13/18 22:10 VBG Base Excess 4.2 mmol/L (0.0-2.0) H 06/13/18 22:10 VBG Potassium 4.2 mmol/L (3.6-5.2) 06/13/18 22:10 Sodium 142.0 mmol/l (132-148) 06/13/18 22:10 Chloride 107.0 mmol/L (98-107) 06/13/18 22:10 Glucose 72 mg/dl (65-105) 06/13/18 22:10 Lactate 0.9 mmol/L (0.7-2.1) 06/13/18 22:10 Sodium 144 mmol/L (132-148) 06/17/18 11:03 Potassium 4.6 mmol/L (3.6-5.2) 06/17/18 11:03 Chloride 104 mmol/L (98-107) 06/17/18 11:03 Carbon Dioxide 27 mmol/L (22-30) 06/17/18 11:03 Anion Gap 17 (10-20) 06/17/18 11:03 BUN 33 mg/dL (7-17) H 06/17/18 11:03 Creatinine 2.4 mg/dL (0.7-1.2) H 06/17/18 11:03 Est GFR ( Amer) 24 06/17/18 11:03 Est GFR (Non-Af Amer) 20 06/17/18 11:03 POC Glucose (mg/dL) 128 mg/dL (65-110) H 06/17/18 11:28 Random Glucose 166 mg/dL (65-105) H 06/17/18 11:03 Uric Acid 4.6 mg/dL (2.2-7.5) 06/15/18 08:24 Calcium 9.7 mg/dl (8.6-10.4) 06/17/18 11:03 Phosphorus 3.7 mg/dL (2.5-4.5) 06/17/18 11:03 Magnesium 1.7 mg/dL (1.6-2.3) 06/17/18 11:03 Total Bilirubin 0.4 mg/dL (0.2-1.3) 06/17/18 11:03 AST 22 U/L (14-36) 06/17/18 11:03 ALT 22 U/L (9-52) 06/17/18 11:03 Alkaline Phosphatase 57 U/L (38-126) 06/17/18 11:03 Total Protein 7.1 g/dL (6.3-8.3) 06/17/18 11:03 Albumin 3.8 g/dL (3.5-5.0) 06/17/18 11:03 Globulin 3.3 gm/dL (2.2-3.9) 06/17/18 11:03 Albumin/Globulin Ratio 1.2 (1.0-2.1) 06/17/18 11:03 25-OH Vitamin D Total 30.2 NG/ML (30.0-100.0) 06/15/18 08:24 PTH Intact Whole Molec 70 pg/mL (14-64) H 06/15/18 08:24 Venous Blood Potassium 4.2 mmol/L (3.6-5.2) 06/13/18 22:10 Urine Color Straw (YELLOW) 06/13/18 22:12 Urine Clarity Clear (Clear) 06/13/18 22:12 Urine pH 5.0 (5.0-8.0) 06/13/18 22:12 Ur Specific [place] 1.010 (1.003-1.030) 06/13/18 22:12 Urine Protein Negative mg/dL (NEGATIVE) 06/13/18 22:12 Urine Glucose (UA) Normal mg/dL (Normal) 06/13/18 22:12 Urine Ketones Negative mg/dL (NEGATIVE) 06/13/18 22:12 Urine Blood Negative (NEGATIVE) 06/13/18 22:12 Urine Nitrate Negative (NEGATIVE) 06/13/18 22:12 Urine Bilirubin Negative (NEGATIVE) 06/13/18 22:12 Urine Urobilinogen Normal mg/dL (0.2-1.0) 06/13/18 22:12 Ur Leukocyte Esterase Neg [place]/uL (Negative) 06/13/18 22:12 Urine WBC (Auto) < 1 /hpf (0-5) 06/13/18 22:12 Ur Squamous Epith Cells 4 /hpf (0-5) 06/13/18 22:12 Ur Random Creatinine 120 mg/dL (20-320) 06/14/18 21:02 U Random Total Protein 303 mg/g creat (21-161) H 06/14/18 21:02 Urine Total Volume 12.4 mg/dL 06/14/18 21:02 Microalb/Creat Ratio 103 (<30) H 06/14/18 21:02 - Hospital Course Hospital Course: Upon Admission: Pt is a 73yo female with a PMh of HTN, hypothyroidsm, Asthma, DM type 2, Gout, L lower ext phlebitis and recent treatment course of L Leg cellulitis presents to the ED with a one month history of L lower extremity pain. Pt says the pain went away for the two weeks or so but it came back on saturday. she describes the pain as non radiating, extremely tender and worse with movement. She has not taken anything to make it better. Pt says its been getting worse since saturday. she went to her PMD today who told her to come to the ER for treatment. Of note : Pt has had two episodes of phlebitis in the L calf each after giving to her two children. Pt has a very sedentary lifestyle and only ambulates short distances with a walker. ROS pos+ swelling in the calf, redness, bruising in the L calf, feels warm, difficulty walking neg- fevers, chills, sweating, n/v, SOB, pain with inspiration, chest pain, palpitations, change in vision, sick contacts, change in bowel moves or urine [facility] PMD: unknown PMH: HTn, gout, asthma, dm2, hypothyroid, phlebitis, cellulitis Psx: nicole carpal tunnel release, C section, cholecystectomy SocHx: former smoker, former ETOH, denies drug use, lives home, sedentary Family Hx: mom dm2 Allergies: denies Hospital Course: 73 yo female who presents to the hospital for evaluation for 1 month of left lower extremity pain; previous significant history of phelbitis and cellulits; blood cultures were negative; Venous doppler showed blood clot in right lower extremity however left extremity visibility was limited due excessive swelling; repeat venous doppler on lower left extremity showed similar result; was treated with eliquis and discharged to continue eliquis 10mg bid for 4 days and then transition to eliquis 5mg bid for 6 months. Patient educated to use ambulatory assisting device and to follow up with nephrology for management of HTN. Discharge Plan: Patient is stable for discharge for home as per Dr. Guevara with PT aide at home. Patient is to follow up with Dr. Fisher and PMD within 1 week of discharge from hospital. Patient should resume all of her home medications and start the new medications listed: Eliquis 10mg twice a day by mouth for the next 4 days followed by Eliquis 5mg twice a day by mouth for the next 30 days. Patient should return to the hospital if symptoms recur or worsen. Patient understands and agrees to the plan as above. Discharge Exam - Head Exam Head Exam: NORMAL INSPECTION, NORMOCEPHALIC - Eye Exam Eye Exam: EOMI, Normal appearance. absent: Nystagmus, Scleral icterus - Respiratory Exam Respiratory Exam: NORMAL BREATHING PATTERN. absent: Rales, Rhonchi, Wheezes, Respiratory Distress - Cardiovascular Exam Cardiovascular Exam: REGULAR RHYTHM, +S1, +S2. absent: Tachycardia, Systolic Murmur - GI/Abdominal Exam GI & Abdominal Exam: Normal Bowel Sounds. absent: Distended, Firm, Guarding Additional comments: slight tenderness to palpation - Extremities Exam Extremities exam: calf tenderness, normal inspection - Neurological Exam Neurological exam: Alert, Normal Gait, Oriented x3 - Psychiatric Exam Psychiatric exam: Normal Affect, Normal Mood - Skin Skin Exam: Intact, Normal Color Discharge Plan - Discharge Medications Prescriptions: Apixaban [Eliquis] 10 mg PO BID #8 tab Apixaban [Eliquis] 5 mg PO BID #60 tab - Follow Up Plan Condition: FAIR Disposition: HOME/ ROUTINE Instructions: Gout (DC), Hyperkalemia (DC), Chronic Kidney Disease (DC), Cellulitis (DC) Additional Instructions: Patient is stable for discharge for home as per Dr. Guevara with PT aide at home. Patient is to follow up with Dr. Fisher and PMD within 1 week of discharge from hospital. Patient should resume all of her home medications and start the new medications listed: Eliquis 10mg twice a day by mouth for the next 4 days followed by Eliquis 5mg twice a day by mouth for the next 30 days. Patient should return to the hospital if symptoms recur or worsen. Patient understands and agrees to the plan as above. Referrals: Asim Fisher MD [Staff Provider] -
== END 2018-06-17 17:30 | disposition home or self-care (01) | DRG 300 ==
LOC: C.ER 18:54 → C.6T 22:36 → C.9E 22:36 → C.5S 06-14 08:56
PROVIDERS: ADMIT Internal Medicine; ATTEND Internal Medicine
DX: I82.5Z1 Chronic embolism and thrombosis of unspecified deep veins of right distal lower extremity (principal); N18.4 Chronic kidney disease, stage 4 (severe); L03.116 Cellulitis of left lower limb; E03.9 Hypothyroidism, unspecified; E11.22 Type 2 diabetes mellitus with diabetic chronic kidney disease; D64.9 Anemia, unspecified; E87.5 Hyperkalemia; I12.9 Hypertensive chronic kidney disease with stage 1 through stage 4 chronic kidney disease, or unspecified chronic kidney disease; J45.909 Unspecified asthma, uncomplicated; M10.9 Gout, unspecified; Z87.891 Personal history of nicotine dependence

== ENCOUNTER 2018-07-21 14:33 | Emergency (ER) | payer MEDICARE, MEDICAID ==
[2018-07-21 14:36] VITALS: O2SAT 97
[2018-07-21 14:55] LABS: BASO # 0.1 K/uL (0.0-0.2); BASO % 0.8 % (0.0-2.0); EOS # 0.1 K/uL (0.0-0.7); EOS % 1.6 % (0.0-4.0); HEMOGLOBIN 11.3 g/dL (11.0-16.0); LYMPH % 23.6 % (20.0-40.0); MEAN CELL VOLUME 94.2 fL (81.0-99.0); MEAN CORPUSCULAR HEMOGLOBIN 31.3 pg (27.0-31.0); MEAN CORPUSCULAR HGB CONC 33.2 g/dL (33.0-37.0); MEAN PLATELET VOLUME 9.5 fL (7.2-11.7); MONO # 0.6 K/uL (0.0-0.8); MONO % 6.9 % (0.0-10.0); NEUT # 5.6 K/uL (1.8-7.0); NEUT % 67.1 % (50.0-75.0); NRBC % 0.1 % (0.0-2.0); RBC 3.61 Mil/uL (3.80-5.20); RED CELL DISTRIBUTION WIDTH 15.8 % (11.5-14.5); WHITE BLOOD COUNT 8.3 K/uL (4.8-10.8)
[2018-07-21 15:01] LABS: INR 1.2; PROTHROMBIN TIME 12.9 SECONDS (9.7-12.2)
[2018-07-21 15:07] LABS: ALB/GLOB RATIO 1.3 (1.0-2.1); ALBUMIN 4.1 g/dL (3.5-5.0); CALCIUM 8.7 mg/dl (8.6-10.4)
--- NOTE | 2018-07-21 15:27 | C.PDOC ---
History Of Present Illness 73 year old female presents to the ER with a complaint of left leg pain and swelling for the past week. Patient states she is able to ambulate. Denies trauma, chest pain, SOB, weakness, numbness, or fever. Time Seen by Provider: 07/21/18 14:36 Chief Complaint (Nursing): Lower Extremity Problem/Injury History Per: Patient History/Exam Limitations: no limitations Onset/Duration Of Symptoms: Days Current Symptoms Are (Timing): Still Present Recent travel outside of the [place]: No Past Medical History Reviewed: Historical Data, Nursing Documentation, Vital Signs Vital Signs: Last Vital Signs Temp 98.4 F 07/21/18 16:09 Pulse 75 07/21/18 16:09 Resp 18 07/21/18 16:09 BP 125/75 07/21/18 16:09 Pulse Ox 97 07/21/18 16:31 - Medical History PMH: Anxiety, Asthma, Diabetes, Gall Bladder Disease, HTN, Hypothyroidism, Chronic Kidney Disease Surgical History: Cholecystectomy Family History: States: Unknown Family Hx - Social History Hx Tobacco Use: No Hx Alcohol Use: No Hx Substance Use: No - Immunization History Hx Tetanus Toxoid Vaccination: No Hx Influenza Vaccination: Yes Hx Pneumococcal Vaccination: Yes Review Of Systems Constitutional: Negative for: Fever, Chills Cardiovascular: Negative for: Chest Pain Respiratory: Negative for: Shortness of Breath Musculoskeletal: Positive for: Leg Pain Neurological: Negative for: Weakness, Numbness Physical Exam - Physical Exam Appears: Non-toxic Skin: Warm, Dry, No Rash Head: Atraumatic, Normacephalic Eye(s): bilateral: Normal Inspection Oral Mucosa: Moist Throat: No Erythema, No Exudate Neck: Normal, Supple Chest: Symmetrical, No Tenderness Cardiovascular: Rhythm Regular, No Friction Rub, No Murmur Respiratory: Normal Breath Sounds, No Rales, No Rhonchi, No Wheezing Gastrointestinal/Abdominal: Soft, No Tenderness Back: No CVA Tenderness, No Vertebral Tenderness, No Paraspinal Tenderness Extremity: Normal ROM (x4), Calf Tenderness (Left), Capillary Refill (<2 seconds ), Other (Left leg with +1 swelling, warm to touch, erythematous) Pulses: Left Dorsalis Pedis: Normal, Right Dorsalis Pedis: Normal Neurological/Psych: Oriented x3, Normal Speech, Normal Motor, Normal Sensation Gait: Steady ED Course And Treatment - Laboratory Results Result Diagrams: 07/21/18 14:46 07/21/18 14:46 O2 Sat by Pulse Oximetry: 97 (room air) Pulse Ox Interpretation: Normal Medical Decision Making Medical Decision Making: Blood work and doppler study ordered. Venous duplex: negative for DVT. The leg is warm and slightly erythematous. So will treat for cellulitis. Disposition - Disposition Referrals: Violet Bailey DPM [Staff Provider] - [facility] [Outside] [facility] [Outside] Disposition: HOME/ ROUTINE Disposition Time: 16:29 Condition: STABLE Additional Instructions: Follow up with the medical doctor within 1-2 days. Return if worsened. 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 - Scribe Statement The provider has reviewed the documentation as recorded by the Scribe Dc Joshi All medical record entries made by the Marleny were at my direction and personally dictated by me. I have reviewed the chart and agree that the record accurately reflects my personal performance of the history, physical exam, medical decision making, and the department course for this patient. I have also personally directed, reviewed, and agree with the discharge instructions and disposition.
[2018-07-21 16:10] VITALS: BP 125/75; PULSE 75; RESP 18; TEMP 98.4
== END 2018-07-21 17:25 | disposition home or self-care (01) ==
LOC: C.ER 14:33
DX: L03.116 Cellulitis of left lower limb (principal); E03.9 Hypothyroidism, unspecified; I12.9 Hypertensive chronic kidney disease with stage 1 through stage 4 chronic kidney disease, or unspecified chronic kidney disease; N18.9 Chronic kidney disease, unspecified

== ENCOUNTER 2018-11-28 02:30 | Emergency (ER) | payer MEDICAID, MEDICARE ==
[2018-11-28 02:45] VITALS: RESP 18; O2SAT 99
[2018-11-28] MEDS ORDERED: Tramadol 25 mg PO STA (03:28)
--- NOTE | 2018-11-28 04:28 | C.PDOC ---
History Of Present Illness 73 year old female presents to the ER with a complaint of bilateral thigh pain described as cramp that began last night while she was in bed. Patient is on gabapentin for similar pain but states it was not helping so she called 911. Denies trauma, fall, weakness, or numbness. Patient ambulates with a walker. Time Seen by Provider: 11/28/18 02:48 Chief Complaint (Nursing): Lower Extremity Problem/Injury History Per: Patient History/Exam Limitations: no limitations Onset/Duration Of Symptoms: Hrs Current Symptoms Are (Timing): Still Present Recent travel outside of the [place]: No Past Medical History Reviewed: Historical Data, Nursing Documentation, Vital Signs Vital Signs: Last Vital Signs Temp 98 F 11/28/18 02:42 Pulse 69 11/28/18 02:42 Resp 18 11/28/18 02:42 BP 109/68 11/28/18 02:42 Pulse Ox 99 11/28/18 02:42 - Medical History PMH: Anxiety, Asthma, Diabetes, Gall Bladder Disease, HTN, Hypothyroidism, Chronic Kidney Disease Surgical History: Cholecystectomy Family History: States: Unknown Family Hx - Social History Hx Tobacco Use: No Hx Alcohol Use: No Hx Substance Use: No - Immunization History Hx Tetanus Toxoid Vaccination: No Hx Influenza Vaccination: Yes Hx Pneumococcal Vaccination: Yes Review Of Systems Musculoskeletal: Positive for: Other (Bilateral thigh pain) Neurological: Negative for: Weakness, Numbness Physical Exam - Physical Exam Appears: Non-toxic Skin: Normal Color, Warm, Dry Head: Atraumatic, Normacephalic Eye(s): bilateral: Normal Inspection Back: No Vertebral Tenderness, No Paraspinal Tenderness Extremity: Normal ROM (x4), Capillary Refill (<2 seconds), Other (Bilateral 1+ pitting edema. No erythema or calf swelling.) Pulses: Left Dorsalis Pedis: Normal, Right Dorsalis Pedis: Normal Neurological/Psych: Oriented x3, Normal Speech, Normal Motor, Normal Sensation ED Course And Treatment O2 Sat by Pulse Oximetry: 99 (room air) Pulse Ox Interpretation: Normal Progress Note: Tramadol administered. Patient is resting comfortably in the ER in no acute distress, vitals are stable, will discharge home via [facility]. 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 - Scribe Statement The provider has reviewed the documentation as recorded by the Scribzana Joshi All medical record entries made by the Ronyibzana were at my direction and personally dictated by me. I have reviewed the chart and agree that the record accurately reflects my personal performance of the history, physical exam, medical decision making, and the department course for this patient. I have also personally directed, reviewed, and agree with the discharge instructions and disposition.
[2018-11-28 05:00] VITALS: BP 135/73; PULSE 64; TEMP 97.6
== END 2018-11-28 04:40 | disposition home or self-care (01) ==
LOC: SUPCPDRO 02:30 → C.ER 02:30
DX: R25.2 Cramp and spasm (principal)